=== PATIENT | female | born 1960 | race Caucasian/White ===

== ENCOUNTER 2016-03-17 12:35 | Outpatient (CLI) | payer OTHER ==
[~2016-03-17] VITALS: Ht 160 cm; Wt 91.2 kg
[~2016-03-17 12:35] MED LIST: ACET-2267 PO; AZIT250T5 PO; CYCL10TA9 PO; IBP200T PO; IBUP-1779 PO; IPRA3AMP INH; LEVO175T2 PO; LEVO200T30 PO; LEVO200T6 PO; PRD10T PO; TIOT18CA2 IH
[2016-03-17 12:43] VITALS: BP 161/93
[2016-03-17] MEDS ORDERED: ACET-2267 PO (12:49)
[2016-03-17] MEDS ORDERED: LEVO150T6 PO (12:49)
[2016-03-17 13:10] LABS: BASOPHILS # (AUTO) 0.1 10^3/uL (0.0-0.1); BASOPHILS % (AUTO) 2 % (0-10); EOSINOPHILS # (AUTO) 0.3 10^3/uL (0.0-0.3); EOSINOPHILS % (AUTO) 4 % (0-10); LYMPHOCYTES # (AUTO) 2.9 X 10^3 (1.0-4.0); LYMPHOCYTES % (AUTO) 44 % (12-44); MEAN CORPUSCULAR HEMOGLOBIN 33 PG (25-34); MEAN CORPUSCULAR HGB CONC 34 G/DL (32-36); MEAN CORPUSCULAR VOLUME 98 FL (80-99); MEAN PLATELET VOLUME 10.2 FL (7.4-10.4); MONOCYTES # (AUTO) 0.5 X 10^3 (0.0-1.0); MONOCYTES % (AUTO) 7 % (0-12); NEUTROPHILS # (AUTO) 2.9 X 10^3 (1.8-7.8); NEUTROPHILS % (AUTO) 44 % (42-75); PLATELET COUNT 223 10^3/uL (130-400); RED BLOOD COUNT 4.93 10^6/uL (4.35-5.85); RED CELL DISTRIBUTION WIDTH 13.8 % (10.0-14.5); WHITE BLOOD COUNT 6.6 10^3/uL (4.3-11.0)
== END 2016-03-17 13:00 | disposition home or self-care (01) ==
LOC: PREOP 12:35
PROVIDERS: ATTEND Surgery
DX: Z01.818 Encounter for other preprocedural examination (principal); Z11.2 Encounter for screening for other bacterial diseases; K80.20 Calculus of gallbladder without cholecystitis without obstruction
CPT/HCPCS: 36415; 85025; 87081

== ENCOUNTER 2016-03-20 06:02 | Day surgery (SDC) | payer OTHER ==
[~2016-03-20] VITALS: Ht 160 cm; Wt 91.2 kg
[~2016-03-20 06:02] MED LIST changes: +CLINDAMYCIN 600 MG/50 ML IVPB 50 ML IV ONE; +LEVO150T6 PO
[2016-03-20] MEDS ORDERED: ATRACURIUM 50 MG/5 ML (TRACRIUM) IV ONE (06:45)
[2016-03-20] MEDS ORDERED: proPOfol 200 MG/20 ML (DIPRIVAN) VIAL IV ONE (06:45)
[2016-03-20] MEDS ORDERED: DEXAMETHASONE PF 10 MG/ML (DECADRON) VIAL ONE (06:45)
[2016-03-20] MEDS ORDERED: MIDAZOLAM 2 MG/2 ML (VERSED) VIAL ONE (06:45)
[2016-03-20] MEDS ORDERED: SEVOFLURANE (ULTANE) 15 ML INHAL SOLN ONE ×8 (06:45→09:32)
[2016-03-20] MEDS ORDERED: fentaNYL INJECTION 100 MCG/2 ML AMP ONE (06:45)
[2016-03-20] MEDS ORDERED: HURRICAINE EXT TUBE (BENZOCAINE) ONE (06:45)
[2016-03-20] MEDS ORDERED: LIDOCAINE PF 2% 10 ML (XYLOCAINE) AMP ONE (06:45)
[2016-03-20] MEDS: LACTATED RINGERS 1,000 ML IV PRN ×2 (06:57→08:00)
[2016-03-20] MEDS ORDERED: FAMOTIDINE 20MG/2ML IV (PEPCID) IV ONE (07:00)
[2016-03-20] MEDS ORDERED: GLYCOPYRROLATE 0.2 MG/ML (ROBINUL) 2 ML VIAL IV ONE (07:00)
[2016-03-20] MEDS ORDERED: BUPIVACAINE 0.5% 30 ML (SENSORCAINE) VIAL ONE (07:04)
[2016-03-20] MEDS ORDERED: LIDOCAINE 1% INJ 20 ML (XYLOCAINE) VIAL ONE (07:04)
[2016-03-20] MEDS ORDERED: CLINDAMYCIN 600 MG/50 ML IVPB 50 ML IV ONE (07:15)
[2016-03-20 07:45] VITALS: BP 183/89
--- NOTE | 2016-03-20 09:29 | Progress Note-Post Operative ---
Post-Operative Progess Note Talent Development Director Dr. Velázquez Pre-Operative Diagnosis symptomatic choleliathisis Post-Operative Diagnosis same Post-Op Procedure Note Date of Procedure: Mar 20, 2016 Name of Procedure: lap deepti c ioc Procedure Note/Findings see note Anesthesia Type general Estimated blood loss (mL): minimal Specimen(s) collected gallbladder PRAVIN PLUNKETT DO Mar 20, 2016 09:29
[2016-03-20] MEDS ORDERED: DOCU-143 PO (09:30)
[2016-03-20] MEDS ORDERED: HYDR-3812 PO (09:30)
[2016-03-20] MEDS ORDERED: HYDROcodone/APAP 5 MG/325 MG (LORTAB) TAB PO PRN (09:30)
--- NOTE | 2016-03-20 09:32 | Discharge Inst-Simple/Standard ---
Discharge Inst-Standard Discharge Medications New, Converted or Re-Newed RX: RX on Chart Patient Instructions/Follow Up Plan of Care/Instructions/FU: 2-3 weeks Lucas Activity as Tolerated: No Discharge Diet: Regular Diet Other Inst to Patient Follow up Appt: Make appointment for 2-3 weeks. Instructions: No lifting greater than 10 pounds. No strenuous activity. May shower in 24 hours, no tub bath or soaking. Use incentive spirometer at home as directed. No Smoking Skin/Wound Care: May remove bandages in 24 hours. You need to leave the white strips over incision on they will fall off on their own. Symptoms to Report: Appetite Changes, Extremity Discoloration, Numbness/Tingling, Swelling Increased , Bleeding Excessive, Eyesight Changes, Pain Increased, Urine Color Change, Constipation(Persistent), Fever over 101 degree F, Pain/Pressure in chest, Urinating Difficulty, Cough Up/Vomit Blood, Heart Beat Irreg/Pounding, Pain/ Pressure in jaw, Vaginal Bleeding Increase, Cramps in feet or legs, Lightheadedness, Pain/Pressure in shoulder, Diarrhea(Persistent), Memory Changes Suddenly, Questions/Concerns, Weight gain consecutive days, Dizziness/ Fainting, Nausea/Vomiting, Shortness of Breath, Weight gain over 2 pounds. If eyes or skin turn yellow notify physician. If questions or concerns contact your physician Or seek help at emergency department. PRAVIN PLUNKETT DO Mar 20, 2016 09:31
[2016-03-20] MEDS ORDERED: morphine INJ 10 MG/ML 1ML (SYR OR VIAL) ONE (09:37)
[2016-03-20] MEDS ORDERED: MEPERIDINE (DEMEROL) INJ 50 MG/ML IV PRN (10:00)
[2016-03-20] MEDS ORDERED: PROMETHAZINE INJ 25 MG/ML (PHENERGAN) AMP IV PRN (10:00)
[2016-03-20] MEDS ORDERED: ONDANSETRON 4 MG/2 ML (SDV) Z0FRAN IV PRN (10:00)
[2016-03-20] MEDS ORDERED: fentaNYL INJECTION 100 MCG/2 ML AMP IV PRN (10:00)
[2016-03-20] MEDS: morphine INJ 10 MG/ML 1ML (SYR OR VIAL) IV PRN ×2 (10:28→10:30)
[2016-03-20 10:50] VITALS: BP 131/79
[2016-03-20 11:20] VITALS: BP 132/81
[2016-03-20] MEDS ORDERED: ONDANSETRON 4 MG/2 ML (SDV) Z0FRAN IVP ONE (11:30)
[2016-03-20 11:50] VITALS: BP 130/71
[2016-03-20] MEDS ORDERED: HYDR15SO8 PO (11:58)
--- NOTE | 2016-03-20 12:02 | Diagnostic Imaging Report ---
Exam: Intraoperative cholangiogram performed by Dr. Zavala Indication: Right upper quadrant pain. Laparoscopic cholecystectomy. Fluoroscopy time provided is 16 seconds. Findings: There is contrast injection within the cystic duct with contrast seen in the CBD which is at the upper limits of normal in caliber. There is prompt filling of the second portion of the duodenum. No filling defects are seen to suggest a stone. Impression: No evidence of CBD obstruction or stone. Dictated by: Dictated on workstation # [id number]
[2016-03-20 12:30] VITALS: BP 130/71
[2016-03-20 12:31] VITALS: BP 130/71
--- NOTE | 2016-03-21 10:02 | OPERATIVE REPORT ---
PROCEDURE PHYSICIAN: PRAVIN PLUNKETT DATE OF PROCEDURE: 03/20/2016 PREOPERATIVE DIAGNOSIS: Symptomatic cholelithiasis. POSTOPERATIVE DIAGNOSIS: Symptomatic cholelithiasis. PROCEDURE: Laparoscopic cholecystectomy with intraoperative cholangiogram. SURGEON: Lucas HOP WEIGHER: Dr. Velázquez, assist in retraction, dissection, and closure. ANESTHESIA: General. ESTIMATED BLOOD LOSS: Minimal. COMPLICATIONS: None. INDICATIONS: The patient is a 55-year-old female with symptomatic cholelithiasis. She understands the risk and benefits of the procedure and wishes to proceed with procedure. Consent was signed on the chart. PROCEDURE: The patient was taken to the operating suite. She was prepped and draped in the sterile fashion. A surgical pause was performed. Local anesthetic was used to infiltrate the area just above the umbilicus. A skin incision was made and dissection was taken down to the fascia, which it was then scored, grasped with Mariajose's, elevated and the abdomen was then entered. An 0 Vicryl suture using in a tkztvg-sa-ovrzz fashion. An Paola trocar was placed. Under direct visualization of the laparoscope, a 5 mm trocar was placed in the subxiphoid region and two 5-mm trocars were placed in the right upper quadrant. Local anesthetic had been infiltrated into these areas prior to a total of 20 mL of 0.5% Marcaine 1% lidocaine in a 50:50 ratio. The gallbladder had chronic cholecystitis appearance. It had some slight edema around it. It was grasped, elevated. The cystic duct was then dissected out. A clip was placed on the distal portion of the cystic duct and the duct was partially transected. An arrow catheter was inserted. The catheter kept falling out with the balloon inflated. Therefore, a clip was put in place to hold it in place. A cholangiogram was then performed. There was no filling defects. There are no stones visualzied in the duct. Contrast made its way into the duodenum. The catheter was removed. Clips were placed on proximal portion of the cystic duct and this was then transected. The cystic artery was then dissected out, clips were placed on proximal and distal portion. This was then transected. Hook cautery was used to dissect the gallbladder from the gallbladder fossa achieving hemostasis. Once removed, it was placed in an Endobag and removed through the 12 mm trocar site. The gallbladder fossa was reinspected. Hemostasis had been achieved. Copious amounts of irrigation was used to irrigate and the 12 mm trocar was then removed. The fascial defect was closed using joqggk-en-dvckf 0-Vicryl suture that was placed. The abdomen was then desufflated. The trocars were removed. The skin was then closed with 4-0 Vicryl in a subcuticular fashion. The area was then washed and dried and Mastisol and Steri-Strips were applied and sterile bandages were applied. The patient tolerated the procedure well without any complications. She was taken to recovery room in stable condition. Job ID: [id number] Dictated Date: 03/20/2016 09:35:29 Stitch Bonding Machine Drawer In Date: 03/21/2016 09:47:12 / josephine VELEZ
== END 2016-03-20 12:31 | disposition home or self-care (01) ==
LOC: SDC 06:02
PROVIDERS: ATTEND Surgery
DX: K80.10 Calculus of gallbladder with chronic cholecystitis without obstruction (principal)
CPT/HCPCS: 84703

== ENCOUNTER 2016-11-08 21:54 | Emergency (ER) | payer SELFPAY ==
[~2016-11-08] VITALS: Ht 162.6 cm; Wt 90.3 kg
[~2016-11-08 21:54] MED LIST changes: -CLINDAMYCIN 600 MG/50 ML IVPB 50 ML IV ONE; +DOCU-143 PO; +HYDR-3812 PO; +HYDR15SO8 PO
--- OUTSIDE RECORDS SUMMARY | 2016-11-08 21:59 | XMS REPORT ---
Author Author ASHLEY GARNER Organization [facility] Address [address] [place] [address] Care Team Providers Care Bomb Loader Name Role Phone ASHLEY GARNER Unavailable PROBLEMS Type Condition ICD9-CM Code APE78-FY Code Onset Dates Condition Status SNOMED Code Problem Nodule of right lung R91.1 Active 781910419 Problem Postablative hypothyroidism E89.0 Active 980680103 Problem COPD (chronic obstructive pulmonary disease) J44.9 Active 69209480 Problem Macrocytosis D75.89 Active 486110836 Problem Hypoxia R09.02 Active 922222326 Problem Cardiomegaly I51.7 Active 8189385 Problem Lumbago with sciatica, right side M54.41 Active 968767891 Problem Sciatica of right side M54.31 Active 04585323 Problem Pure hypercholesterolemia E78.00 Active 078226677 Problem Pure hypercholesterolemia E78.0 Active 421329952 Problem Acute sciatica M54.30 Active 797046002 Problem Essential hypertension I10 Active 17009879 ALLERGIES Unknown Allergies SOCIAL HISTORY No smoking Hx information available PLAN OF CARE VITAL SIGNS MEDICATIONS Medication Instructions Dosage Frequency Start Date End Date Duration Status Synthroid 150 MCG Orally Once a day 1 tablet 24h Apr, Active RESULTS No Results PROCEDURES No Known procedures IMMUNIZATIONS No Known Immunizations
--- OUTSIDE RECORDS SUMMARY | 2016-11-08 21:59 | XMS REPORT ---
Author Author ASHLEY GARNER [facility] eClinicalWorks Address Unknown Phone Unavailable Care Team Providers Care Flanger Name Role Phone ASHLEY GARNER Unavailable Allergies No Known Allergies Problems Problem Type Condition Code Onset Dates Condition Status Problem Macrocytosis D75.89 Active Problem Pure hypercholesterolemia E78.0 Active Problem Postablative hypothyroidism E89.0 Active Problem Pure hypercholesterolemia E78.00 Active Problem Cardiomegaly I51.7 Active Problem Hypoxia R09.02 Active Problem COPD (chronic obstructive pulmonary disease) J44.9 Active Problem Nodule of right lung R91.1 Active Medications No Known Medications Results No Known Results Summary Purpose eClinicalWorks Submission
--- OUTSIDE RECORDS SUMMARY | 2016-11-08 21:59 | XMS REPORT ---
Author Author ASHLEY GARNER [facility] eClinicalWorks Address Unknown Phone Unavailable Care Team Providers Care Chair Springer Name Role Phone ASHLEY GARNER CP Unavailable Allergies No Known Allergies Problems Problem Type Condition Code Onset Dates Condition Status Problem Macrocytosis D75.89 Active Assessment Enlarged lymph node R59.9 Active Problem Pure hypercholesterolemia E78.0 Active Problem Postablative hypothyroidism E89.0 Active Problem Pure hypercholesterolemia E78.00 Active Problem Cardiomegaly I51.7 Active Problem Hypoxia R09.02 Active Problem COPD (chronic obstructive pulmonary disease) J44.9 Active Problem Nodule of right lung R91.1 Active Medications No Known Medications Results No Known Results Summary Purpose eClinicalWorks Submission
--- OUTSIDE RECORDS SUMMARY | 2016-11-08 21:59 | XMS REPORT ---
Author Author ASHLEY GARNER [facility] eClinicalWorks Address Unknown Phone Unavailable Care Team Providers Care Stenotype Machine Operator Name Role Phone ASHLEY GARNER Unavailable Allergies No Known Allergies Problems Problem Type Condition Code Onset Dates Condition Status Problem Macrocytosis D75.89 Active Assessment Postablative hypothyroidism E89.0 Active Problem Pure hypercholesterolemia E78.0 Active Problem Postablative hypothyroidism E89.0 Active Problem Pure hypercholesterolemia E78.00 Active Problem Cardiomegaly I51.7 Active Problem Hypoxia R09.02 Active Problem COPD (chronic obstructive pulmonary disease) J44.9 Active Problem Nodule of right lung R91.1 Active Medications Medication Code System Code Instructions Start Date End Date Status Dosage Synthroid [facility] [address]-25 175 MCG Orally Once a day May 10, 2015 1 tablet Results No Known Results Summary Purpose eClinicalWorks Submission
--- OUTSIDE RECORDS SUMMARY | 2016-11-08 21:59 | XMS REPORT ---
Author Author ASHLEY GARNER [facility] eClinicalWorks Address Unknown Phone Unavailable Care Team Providers Care Medical Collections Specialist Name Role Phone ASHLEY GARNER CP Unavailable [...]
--- OUTSIDE RECORDS SUMMARY | 2016-11-08 21:59 | XMS REPORT ---
Author Author ASHLEY GARNER eClinicalWorks Address Unknown Phone Unavailable Care Team Providers Care Tower Operator Name Role Phone ASHLEY GARNER CP Unavailable Allergies, Adverse Reactions, Alerts Substance Reaction Event Type Penicillin V Potassium Info Not Available Drug Allergy Problems Problem Type Condition Code Onset Dates Condition Status Assessment Nodule of right lung R91.1 Active Problem Macrocytosis D75.89 Active Assessment Postablative hypothyroidism E89.0 Active Problem Pure hypercholesterolemia E78.0 Active Problem Postablative hypothyroidism E89.0 Active Problem Pure hypercholesterolemia E78.00 Active Problem Cardiomegaly I51.7 Active Problem Hypoxia R09.02 Active Problem COPD (chronic obstructive pulmonary disease) J44.9 Active Problem Nodule of right lung R91.1 Active Assessment Right lower quadrant abdominal pain R10.31 Active Assessment Chest pain, unspecified type R07.9 Active Assessment Pure hypercholesterolemia E78.00 Active Assessment COPD (chronic obstructive pulmonary disease) J44.9 Active Assessment Hyperlipidemia E78.5 Active Assessment Macrocytosis D75.89 Active Medications Medication Code System Code Instructions Start Date End Date Status Dosage Ipratropium-Albuterol [facility] [address]-84 0.5-2.5 (3) MG/3ML Inhalation Four times a day and if wakes up in the night coughing May 04, 2015 3 ml Synthroid [facility] [address]-08 200 MCG Orally Once a day May 10, 2015 1 tablet Atorvastatin Calcium [facility] [address]-24 20 mg Orally Once a day May 18, 2015 1 tablet Tiotropium Erwin Monohydrate [facility] [address]-05 18 MCG Inhalation Once a day Jan 01, 2016 1 capsule Albuterol Sulfate HFA [facility] [address]-13 108 (90 Base) MCG/ACT Inhalation every 4 hrs Jan 01, 2016 2 puffs as needed Procedures Procedure Coding System Code Date LIPID PANEL CPT-4 58043 Jan 01, 2016 COMPLETE CBC W/AUTO DIFF WBC CPT-4 51203 Jan 01, 2016 ASSAY THYROID STIM HORMONE CPT-4 29295 Jan 01, 2016 VENIPUNCT, ROUTINE* CPT-4 74573 Jan 01, 2016 COMPREHEN METABOLIC PANEL CPT-4 39688 Jan 01, 2016 BLOOD SMEAR INTERPRETATION CPT-4 41075 Jan 01, 2016 Office Visit, Est Pt., Level 4 CPT-4 41232 Jan 01, 2016 ELECTROCARDIOGRAM, TRACING CPT-4 16710 Jan 01, 2016 Vital Signs Date/Time: Jan 01, 2016 Cardiac Monitoring Heart Rate 80 bpm Weight 194.3 lbs Height 63 in BMI 34.41 Index Blood Pressure Diastolic 77 mmHg Blood Pressure Systolic 119 mmHg Results Name Result Date Reference Range Unit Abnormality Flag PERIPHERAL BLOOD SMEAR ----PLTs Appear normal. 75093169 ----WBC Appear normal. 54924937 ----RBC Appear normal. 20160101 TSH ----TSH 0.356 20083815 0.450-4.500 uIU/mL L ROUTINE VENIPUNCTURE EKG, TRACING (IN-HOUSE) CMP ----BUN/Creatinine Ratio 26 02463589 9-23 H ----eGFR If Africn Am 90 [id number] >59 mL/min/1.73 ----eGFR If NonAfricn Am 78 49047953 >59 mL/min/1.73 ----Creatinine, Serum 0.84 12574244 0.57-1.00 mg/dL ----Chloride, Serum 101 15007683 97-106 mmol/L ----Potassium, Serum 4.5 13036310 3.5-5.2 mmol/L ----Sodium, Serum 141 39050734 136-144 mmol/L ----Protein, Total, Serum 7.7 60475768 6.0-8.5 g/dL ----Albumin, Serum 5.1 24540147 3.5-5.5 g/dL ----Globulin, Total 2.6 72787196 1.5-4.5 g/dL ----A/G Ratio 2.0 92351589 1.1-2.5 ----BUN 22 72154745 6-24 mg/dL ----Glucose, Serum 83 76386355 65-99 mg/dL ----Carbon Dioxide, Total 24 29370981 18-29 mmol/L ----Calcium, Serum 9.6 20160101 8.7-10.2 mg/dL ----AST (SGOT) 15 20160101 0-40 IU/L ----ALT (SGPT) 20 20160101 0-32 IU/L ----Bilirubin, Total 0.3 20160101 0.0-1.2 mg/dL ----Alkaline Phosphatase, S 85 20160101 39-117 IU/L CBC ----RDW 13.9 39011197 12.3-15.4 % ----MCHC 34.1 99484172 31.5-35.7 g/dL ----MCH 32.9 12275460 26.6-33.0 pg ----MCV 96 20160101 79-97 fL ----Hematocrit 43.1 30637575 34.0-46.6 % ----Hemoglobin 14.7 77201912 11.1-15.9 g/dL ----Immature Granulocytes 0 20160101 % ----RBC 4.47 41337989 3.77-5.28 x10E6/uL ----WBC 5.7 70445436 3.4-10.8 x10E3/uL ----Immature Grans (Abs) 0.0 56424086 0.0-0.1 x10E3/uL ----Eos (Absolute) 0.2 00249902 0.0-0.4 x10E3/uL ----Basos 2 23990093 % ----Baso (Absolute) 0.1 48763971 0.0-0.2 x10E3/uL ----Neutrophils (Absolute) 2.5 74457716 1.4-7.0 x10E3/uL ----Lymphs (Absolute) 2.5 64904310 0.7-3.1 x10E3/uL ----Monocytes(Absolute) 0.4 10159751 0.1-0.9 x10E3/uL ----Neutrophils 44 31302327 % ----Lymphs 43 54518425 % ----Monocytes 8 97236785 % ----Eos 3 95345673 % ----Platelets 249 60975676 150-379 x10E3/uL LIPID PANEL ----HDL Cholesterol 50 49737719 >39 mg/dL ----Triglycerides 79 62308825 0-149 mg/dL ----LDL Cholesterol Calc 107 77830051 0-99 mg/dL H ----VLDL Cholesterol Nitin 16 47405880 5-40 mg/dL ----Cholesterol, Total 173 90787159 100-199 mg/dL Summary Purpose eClinicalWorks Submission
[2016-11-08] MEDS ORDERED: SULF1TAB35 PO (22:44)
--- NOTE | 2016-11-08 22:44 | ED General ---
General Chief Complaint: Lower Extremity Stated Complaint: R LEG PAIN FROM FALL LAST WEEK Nursing Triage Note: PT STATES THAT ON THURSDAY SHE FELL AND HIT RIGHT LEG ON BATHTUB. LACERATION NOTED TO R LOWER LEG WITH SWELLING. DENIES HITTING HEAD. Nursing Sepsis Screen: No Definite Risk Source of Information: Patient Exam Limitations: No Limitations History of Present Illness Time Seen by Provider: 22:24 Initial Comments This 56-year-old woman presents to the emergency room with concerns about infection related to a right garcia injury she sustained one week ago. She had a fairly deep laceration to the right garcia but could not present to the emergency room that day for evaluation. Over the past 5 days she has developed worsening swelling, redness, localized heat, and pain to the area immediately surrounding the wound. She is concern for infection. Vital signs are within normal limits. Allergies and Home Medications Allergies Coded Allergies: Penicillins (Verified Adverse Reaction, Mild, "SICK A CHILD", 10/20/12) Home Medications Docusate Sodium 100 Mg Capsule, 100 MG PO BID, #60 Prescribed by: PRAVIN PLUNKETT on 03/20/16 0930 Hydrocodone/Acetaminophen 15 Ml Solution, 10 ML PO Q4H PRN for PAIN, #120 Prescribed by: PRAVIN PLUNKETT on 03/20/16 1158 Levothyroxine Sodium 150 Mcg Tablet, 150 MCG PO DAILY, (Reported) Sulfamethoxazole/Trimethoprim 1 Each Tablet, 1 EACH PO TID, #30 Prescribed by: RADHA CAREY on 11/08/16 8744 Constitutional: no symptoms reported EENTM: no symptoms reported Respiratory: no symptoms reported Cardiovascular: no symptoms reported Gastrointestinal: no symptoms reported Genitourinary: no symptoms reported : No Musculoskeletal: no symptoms reported Skin: see HPI Psychiatric/Neurological: No Symptoms Reported Hematologic/Lymphatic: No Symptoms Reported Immunological/Allergic: no symptoms reported Past Egmpfui-Cbqjax-Jghalp Hx Patient Social History Alcohol Use: Denies Use Recreational Drug Use: No Type Used: Cigarettes Recent Foreign Travel: No Contact w/Someone Who Travel: No Recent Infectious Disease Expo: No Recent Hopitalizations: No Physical Abuse: No Sexual Abuse: No Immunizations Up To Date Tetanus Booster (TDap): More than 5yrs Date of Pneumonia Vaccine: Mar 02, 2012 Seasonal Allergies Seasonal Allergies: Yes Surgeries History of Surgeries: Yes Surgeries: Appendectomy, Tonsillectomy, Tubal Ligation Respiratory History of Respiratory Disorde: Yes Respiratory Disorders: COPD Currently Using CPAP: No Currently Using BIPAP: No Cardiovascular History of Cardiac Disorders: No Neurological History of Neurological Disord: No Reproductive System Hx Reproductive Disorders: No Sexually Transmitted Disease: No HIV/AIDS: No Female Reproductive Disorders: Denies Genitourinary History of Genitourinary Disor: Yes Genitourinary Disorders: Kidney Stones Gastrointestinal History of Gastrointestinal Di: Yes Gastrointestinal Disorders: Gall Bladder Disease Musculoskeletal History of Musculoskeletal Dis: Yes Musculoskeletal Disorders: Arthritis, Chronic Back Pain Endocrine History of Endocrine Disorders: Yes Endocrine Disorders: Hypothyroidsim Cancer History of Cancer: No Psychosocial History of Psychiatric Problem: No Suicide Risk Score: 0 Integumentary History of Skin or Integumenta: No Blood Transfusions History of Blood Disorders: No (HX OF PE AFTER A VAGINAL DELIVERY IN 1985, no issues since) Adverse Reaction to a Blood Tr: No Physical Exam Vital Signs Vital Sign - Last 12Hours 11/08/16 11/08/16 22:08 23:05 Temp 98.4 Pulse 66 Resp 18 B/P (MAP) 156/91 Pulse Ox 96 Capillary Refill : Less Than 3 Seconds General Appearance: No Apparent Distress, WD/WN HEENT: Normal ENT Inspection Neck: Normal Inspection Respiratory: Lungs Clear, Normal Breath Sounds, No Accessory Muscle Use, No Respiratory Distress Cardiovascular: Regular Rate, Rhythm, No Edema, Normal Peripheral Pulses Gastrointestinal: Normal Bowel Sounds, Non Tender, Soft Extremity: Other (there is a scabbed wound on the right garcia with some serosanguineous drainage. There is localized heat, blanching erythema, tenderness, and swelling surrounding the wound which covers a significant portion of the anterior lower leg. The calf is not particularly tender. Distal sensation, capillary refill, and movement and pedal pulse are all intact) Neurologic/Psychiatric: Alert, Oriented x3, No Motor/Sensory Deficits, Normal Mood/Affect, thread pulling machine attendant II-XII Norm as Tested Skin: Erythema Laceration Repair : Suture Size: 5-0 Progress/Results/Core Measures Results/Orders My Orders Orders - RADHA CONTI MD Clindamycin Injection (Cleocin Injection (11/08/16 22:45) Clindamycin Injection (Cleocin Injection (11/08/16 22:45) Wound Culture (11/08/16 22:39) Sulfamethoxazole/Trimet Ds Tab (Bactrim (11/08/16 22:45) Medications Given in ED Current Medications Medications Dose Ordered Sig/Axel Route Start Time Stop Time Status Last Admin Dose Admin Clindamycin Phosphate 300 mg ONCE ONCE IM 11/08/16 22:45 11/08/16 22:46 DC 11/08/16 22:54 300 MG Clindamycin Phosphate 600 mg ONCE ONCE IM 11/08/16 22:45 11/08/16 22:46 DC 11/08/16 22:53 600 MG Trimethoprim/ Sulfamethoxazole 1 ea ONCE ONCE PO 11/08/16 22:45 11/08/16 22:46 DC 11/08/16 22:52 1 EA Vital Signs/I&O Vital Sign - Last 12Hours 11/08/16 11/08/16 22:08 23:05 Temp 98.4 98.4 Pulse 66 65 Resp 18 18 B/P (MAP) 156/91 Pulse Ox 96 Blood Pressure Mean: 112 Progress Note : Progress Note Patient is up-to-date on her tetanus immunization. She was treated with clindamycin 900 mg IM and Bactrim DS orally. A prescription for Bactrim DS was given to follow. Margins of the wound were outlined with a pain. Return precautions were discussed. Wound was cultured. Departure Impression Impression: Primary Impression: Cellulitis of right leg without foot Additional Impression: Laceration of right leg excluding thigh Qualified Codes: S81.811A - Laceration without foreign body, right lower leg, initial encounter Disposition: 01 HOME, SELF-CARE Condition: Improved Departure-Patient Inst. Decision time for Depature: 22:35 Referrals: ASHLEY GARNER MD (PCP/Family) Primary Care Physician Patient Instructions: Cellulitis (Skin Infection), Adult (DC) Add. Discharge Instructions: Complete your antibiotics as prescribed. Elevate your foot to the level of your heart is much as possible. You may take ibuprofen and/or Tylenol ( acetaminophen) for pain. You may use up to 600 mg of ibuprofen every 6 hours and up to 1000 mg of Tylenol (acetaminophen) every 6 hours. Follow-up with your primary care provider on Thursday for a repeat assessment. Return to care sooner if symptoms worsen, especially if you develop fever over 100. All discharge instructions reviewed with patient and/or family. Voiced understanding. Scripts Sulfamethoxazole/Trimethoprim (Bactrim Ds Tablet) 1 Each Tablet 1 EACH PO TID, #30 TAB Prov: RADHA CONTI MD 11/08/16 Copy Copies To 1: ASHLEY GARNER MD, JOSHUA T MD Nov 08, 2016 22:44
[2016-11-08] MEDS ORDERED: CLINDAMYCIN 600 MG/4ML (CLEOCIN) VIAL IM ONE ×2 (22:45)
[2016-11-08] MEDS ORDERED: TRIM/SULFAMETH 160/800 (SEPTRA DS) TAB PO ONE (22:45)
[2016-11-08 23:05] VITALS: BP 156/91
== END 2016-11-08 23:03 | disposition home or self-care (01) ==
LOC: EDUNIT# 21:54 → ER 21:56
DX: S81.811A Laceration without foreign body, right lower leg, initial encounter (principal); L03.115 Cellulitis of right lower limb; E03.9 Hypothyroidism, unspecified; J44.9 Chronic obstructive pulmonary disease, unspecified; Z98.51 Tubal ligation status; Z90.49 Acquired absence of other specified parts of digestive tract; Z90.89 Acquired absence of other organs; Z87.19 Personal history of other diseases of the digestive system; Z87.442 Personal history of urinary calculi; W18.2XXA Fall in (into) shower or empty bathtub, initial encounter
CPT/HCPCS: 87070; 87077; 87205; 99284

== ENCOUNTER → 2017-07-14 | Outpatient (CLI) | payer SELFPAY ==
[~2017-07-14] MED LIST changes: +ACHD5005 PO; +AZIT250T12 PO; -AZIT250T5 PO; -HYDR-3812 PO; +SULF1TAB35 PO
--- NOTE | 2017-07-14 12:58 | Diagnostic Imaging Report ---
INDICATION: Bilateral leg swelling. TECHNIQUE: Multiple Real-time grayscale images were obtained over the lower extremities in various projections bilaterally. Additional duplex Doppler and color Doppler images were also obtained. FINDINGS: The common femoral, femoral, and popliteal veins demonstrate normal response to compression, augmentation, and Valsalva. There are no abnormal lower extremity fluid collections or masses. IMPRESSION: No evidence of deep venous thrombosis in either lower extremity. Dictated by: Dictated on workstation # [id number]
[2017-07-14 13:01] LABS: HEMOGLOBIN 13.6 G/DL (11.5-16.0); MEAN PLATELET VOLUME 10.7 FL (7.4-10.4); RED BLOOD COUNT 4.02 10^6/uL (4.35-5.85); WHITE BLOOD COUNT 5.4 10^3/uL (4.3-11.0)
[2017-07-14 13:15] LABS: ALBUMIN 4.9 GM/DL (3.2-4.5); BILIRUBIN,TOTAL 0.6 MG/DL (0.1-1.0); CALCIUM 9.8 MG/DL (8.5-10.1); CREATININE SERUM 1.09 MG/DL (0.60-1.30); POTASSIUM 3.9 MMOL/L (3.6-5.0); TOTAL PROTEIN 7.6 GM/DL (6.4-8.2)
--- NOTE | 2017-07-14 13:23 | Diagnostic Imaging Report ---
INDICATION: Chronic worsening right hip pain. COMPARISON: None. FINDINGS: Two radiographic views of the right hip were obtained and show no evidence of acute fracture or dislocation. Femoroacetabular joint space is preserved. Included portions of proximal right femur are intact. There is no evidence of acute fracture of the visualized portions of the right hemipelvis. No unexpected radiopaque foreign bodies are identified. IMPRESSION: Unremarkable radiographic exam of the right hip. Dictated by: Dictated on workstation # [id number]
== END ==
LOC: RAD 11:57
PROVIDERS: ATTEND Family Medicine
DX: M79.89 Other specified soft tissue disorders (principal); I49.9 Cardiac arrhythmia, unspecified; E89.0 Postprocedural hypothyroidism; M25.551 Pain in right hip
CPT/HCPCS: 36415; 73502; 80053; 83880; 84443; 85027; 93970

== ENCOUNTER → 2018-11-02 | Outpatient (CLI) | payer OTHER ==
[~2018-11-02] MED LIST changes: -IPRA3AMP INH; +IPRA3AMP31 INH
--- NOTE | 2018-11-02 13:07 | Diagnostic Imaging Report ---
INDICATION: Routine screening. COMPARISON: 01/22/2016. TECHNIQUE: 2D and 3D bilateral screening mammography was performed with CAD. FINDINGS: Scattered fibroglandular densities are identified bilaterally. No mass or malignant appearing microcalcifications are seen. The axillae are unremarkable. IMPRESSION: No mammographic features suspicious for malignancy are identified. ACR BI-RADS Category 1: Negative. Result letter will be mailed to the patient. Note: At least 10% of breast cancer is not imaged by mammography. Dictated by: Dictated on workstation # [id number]
== END ==
LOC: RAD 09:15
PROVIDERS: ATTEND Nurse Practitioner
DX: Z12.31 Encounter for screening mammogram for malignant neoplasm of breast (principal)
CPT/HCPCS: 77067

== ENCOUNTER → 2019-02-08 | Outpatient (CLI) | payer OTHER ==
[~2019-02-08] MED LIST changes: +ACET-2840 PO; +ASPI-999 PO; +ATOR20TA66 PO; +HYDR25TA4 PO
--- NOTE | 2019-02-08 11:29 | Diagnostic Imaging Report ---
PROCEDURE: US carotid duplex, bilateral. TECHNIQUE: Multiple real-time grayscale images were obtained over the carotid arteries in various projections, bilaterally. Additional spectral analysis and color Doppler duplex images were also obtained. INDICATION: Hyperlipidemia, chest pain. FINDINGS: There are no prior studies available for comparison. This exam is incomplete as the left carotid system was not visualized. The patient became claustrophobic during the exam and could not complete the study. There is fairly good blood flow in the right carotid system. There is a moderate amount of hard and soft plaque formation in the bifurcation, but there is no evidence for a hemodynamically significant stenosis. The right vertebral artery is visualized and there is antegrade flow. IMPRESSION: 1. There is no evidence for a hemodynamically significant stenosis of the right carotid system. The right vertebral artery shows antegrade flow. 2. The left carotid system and the left vertebral artery were not visualized as the patient could not complete this exam. Parameters based on the consensus panel Thibodeaux-Scale and Doppler ultrasound criteria published December 2002, Radiology, Volume 229. DOPPLER (peak systolic velocity M/S Right Left CCA 1.44 NA ICA Proximal 1.06 NA ICA Mid .92 NA ICA Distal .67 NA RATIO .7 NA ECA .94 NA VERT .46 NA Dictated by: Dictated on workstation # [id number]
== END ==
LOC: CARD 10:04
PROVIDERS: ATTEND Internal Medicine Cardiovascular Disease
DX: J44.9 Chronic obstructive pulmonary disease, unspecified (principal); E78.5 Hyperlipidemia, unspecified; M79.89 Other specified soft tissue disorders; Z72.0 Tobacco use
CPT/HCPCS: 93880